=== PATIENT | male | born 1995 | race Caucasian/White ===

== ENCOUNTER 2020-08-20 15:41 | Emergency (ER) | payer OTHER ==
[~2020-08-20] VITALS: Ht 180.3 cm; Wt 59.0 kg
[2020-08-20 16:09] LABS: ABSOLUTE NEUTROPHILS 3.5 thou/uL (1.4-8.2); BASOPHILS 1.4 % (0.0-2.0); HEMATOCRIT 36.1 % (42.0-52.0); HEMOGLOBIN 11.8 gm/dL (14.0-18.0); LYMPHOCYTES 26.6 % (24.0-44.0); MCHC 32.7 g/dL (28.0-37.0); MCV 79.4 fL (80.0-100.0); MONOCYTES 4.7 % (1.0-8.0); PLATELET COUNT 525 thou/uL (150-400); POLYS 65.3 % (36.0-66.0); RBC 4.55 mil/uL (4.50-6.00); WBC 5.3 thou/uL (4.0-11.0)
[2020-08-20 16:17] LABS: CALCIUM 9.7 mg/dL (8.5-10.1); CREATININE 0.8 mg/dL (0.7-1.3); POTASSIUM 4.6 mmol/L (3.5-5.1)
[2020-08-20 16:22] LABS: ALBUMIN 3.2 g/dL (3.4-5.0); TOTAL BILIRUBIN 0.2 mg/dL (0.2-1.0); TOTAL PROTEIN 7.5 g/dL (6.4-8.2)
[2020-08-20] MEDS ORDERED: ASA81BEC PO (16:31)
[2020-08-20] MEDS ORDERED: SENNA LAXATIVE8.6 MG PO (16:31)
[2020-08-20] MEDS ORDERED: INDERAL 20 MG T20 M1 PO (16:31)
[2020-08-20] MEDS ORDERED: FLUOXETINE HCL20 M1 PO (16:32)
[2020-08-20] MEDS ORDERED: GABAPENTIN 100100 MG PO (16:32)
[2020-08-20] MEDS ORDERED: LORAZEPAM 0.50.5 MG PO (16:32)
[2020-08-20] MEDS ORDERED: KEPPRA XR500 MG PO (16:52)
[2020-08-20 17:15] VITALS: BP 104/59
== END 2020-08-20 17:17 | disposition home or self-care (01) ==
LOC: ER 15:41
PROVIDERS: Emergency Medicine
DX: R56.9 Unspecified convulsions (principal); F12.90 Cannabis use, unspecified, uncomplicated; Z79.82 Long term (current) use of aspirin; Z79.899 Other long term (current) drug therapy